=== PATIENT | male | born 1950 | race Caucasian/White ===

== ENCOUNTER 2020-09-20 10:39 | Emergency (ER) | payer OTHER ==
[2020-09-20 11:01] VITALS: TEMP 98.2; BMI 24.7
[2020-09-20 12:32] LABS: ARTERIAL BLD GAS O2 SATURATION 99.2 mmHg (95-98); ARTERIAL BLOOD GAS BASE EXCESS -1.5 mmol/L (-2-2); ARTERIAL BLOOD GAS PO2 175.4 mmHg (80-100); ARTERIAL BLOOD GAS pH 7.372 (7.350-7.450); BASO % 0.4 % (0-2.0); EOS % 1.3 % (0-4.5); HEMATOCRIT 43.9 % (35.4-49); LYMPH % 10.9 % (8-40); MCH 33.7 pg (25.7-33.7); MCHC 34.2 g/dl (32.0-35.9); MEAN CELL VOLUME 98.7 fl (80-96); MEAN PLT VOLUME 9.3 fl (7.5-11.1); MONO % 7.4 % (3.8-10.2); PLATELET COUNT 160 K/MM3 (134-434); RBC 4.45 M/mm3 (4.00-5.60); RDW 14.5 % (11.9-15.9)
[2020-09-20 13:06] LABS: CHLORIDE 109 mmol/L (98-107); POTASSIUM 4.3 mmol/L (3.5-5.1); SODIUM 140 mmol/L (136-145)
[2020-09-20 13:07] LABS: CALCIUM 9.2 mg/dL (8.5-10.1)
[2020-09-20 13:08] LABS: ALBUMIN 3.6 g/dl (3.4-5.0); ANION GAP 5 MMOL/L (8-16); BLOOD UREA NITROGEN 22.3 mg/dL (7-18); CO2 26 mmol/L (21-32); GLUCOSE,RANDOM 102 mg/dL (74-106)
[2020-09-20 13:11] LABS: CREATININE 0.8 mg/dL (0.55-1.3); SGOT/AST 27 U/L (15-37); SGPT/ALT 31 U/L (13-61)
[2020-09-20 13:12] LABS: BILIRUBIN,TOTAL 0.4 mg/dL (0.2-1)
[2020-09-20 13:13] LABS: TOT PROT 6.9 g/dl (6.4-8.2)
[2020-09-20 13:14] LABS: ALK PHOS 79 U/L (45-117)
[2020-09-20 15:22] LABS: ARTERIAL BLD GAS O2 SATURATION 96.3 mmHg (95-98); ARTERIAL BLOOD GAS BASE EXCESS -1.4 mmol/L (-2-2); ARTERIAL BLOOD GAS pH 7.423 (7.350-7.450)
[2020-09-20 15:40] VITALS: BP 145/83; PULSE 74
== END 2020-09-20 16:34 | disposition home or self-care (01) ==
LOC: JER 10:39
DX: R42 Dizziness and giddiness (principal); T58.11XA Toxic effect of carbon monoxide from utility gas, accidental (unintentional), initial encounter
CPT/HCPCS: 36415; 36600; 80053; 82375; 82803; 84484; 85025; 93005; 93010; 99284-25